=== PATIENT | female | born 1955 | race Caucasian/White ===

== ENCOUNTER 2025-05-02 04:38 | Inpatient (IN) | payer OTHER, SELFPAY ==
[2025-05-01 18:23] VITALS: BP 101/70
[2025-05-01 18:35] LABS: Hematocrit 25.5 % (37.0-47.0); Hemoglobin 8.7 g/dL (12.0-16.0); Mean Corp Hgb Conc. 34.1 g/dL (33.0-37.0); Mean Corpuscular Volume 93.4 fL (81.0-99.0); Nucleated Red Blood Cells % 0 %; Platelet Count 229 10^3/uL (130-400); Red Cell Dist. Width 13.7 % (11.5-14.5)
[2025-05-01 18:46] LABS: ALT (SGPT) 11 U/L (0-35); AST (SGOT) 19 U/L (14-36); Albumin 3.7 g/dl (3.5-5.0); Alkaline Phosphatase 73 U/L (38-126); Blood Urea Nitrogen 18 mg/dl (7-17); Calcium 9.2 mg/dl (8.4-10.2); Carbon Dioxide 31 mmol/L (22-30); Chloride 101 mmol/L (98-107); Glucose 125 mg/dl (70-99); Potassium 2.8 mmol/L (3.5-5.1); Sodium 138 mmol/L (135-145); Total Protein 6.4 g/dl (6.3-8.2); eGFR > 60.00
[2025-05-01 23:08] VITALS: BP 125/77
--- NOTE | 2025-05-01 23:21 | ED.GENMED ---
History of Present Illness
<Daylin Ferrell PA-C - Last Filed: 05/02/25 07:34>
General
Chief Complaint: Rectal Bleeding
Source: patient
Exam Limitations: none
Time Seen by Provider: 05/01/25 23:20
Nursing documentation reviewed up to this point in time: agreed with
History of Present Illness
History of Present Illness:
69-year-old female with a past medical history of iron deficiency anemia, coronary artery disease, Crohn's disease, hypertension, hyperlipidemia, presents to the ER today with concerns of rectal bleeding and abdominal pain. She reports that she
recently moved from [place] in November and has been without a GI doctor. She is supposed to receive Entyvio infusions to treat her Crohn's every 8 weeks, however because of the manage she has been without her infusions since last October. The patient
states that she normally has multiple bowel movements every day but reports that recently the past few days she started to have diarrhea associated with bleeding. She notes maroon-colored stools. Also has left-sided abdominal pain. She is feeling
very weak and dizzy at times. She was previously diagnosed with anemia and takes iron however she is unsure of her baseline hemoglobin. She also notes some intermittent pain around her head as she did fall off a few days ago as a result of
dizziness and lightheadedness. She did hit her head. She not lose consciousness. She does not have any neck pain. She denies any facial pain or dental pain.
Review of Systems
<Daylin Ferrell PA-C - Last Filed: 05/02/25 07:34>
Review of Systems
All Other Systems: ROS reviewed and negative except as documented in HPI and ROS
Phy Exam
<Daylin Ferrell PA-C - Last Filed: 05/02/25 07:34>
Physical Exam
Physical Exam:
General: Patient is well appearing and in no acute distress; non-toxic
Skin: Warm and dry, no rashes or lesions
Head: No palpable hematoma of the scalp. Right sided periorbital ecchymosis. No tenderness of the facial bones.
Eyes: Sclera non-icteric. EOMs intact. No entrapment. No proptosis.
Cardiac: Regular rate and rhythm, no murmurs
Peripheral Vascular: No lower extremity swelling or edema
Pulm: Normal respiratory effort, no wheezes, rales, rhonchi
Abdomen: Abdomen is soft, minimal left-sided tenderness no palpable masses
Genitourinary: External hemorrhoid that is not actively bleeding, nonpainful. Heme positive stool noted within the rectal vault. No carmen rectal bleeding.
Neuro: CN II-XII intact, no focal neurologic deficits.
Psychiatric: Appropriate mood and affect.
Course
<Daylin Ferrell PA-C - Last Filed: 05/02/25 07:34>
Orders/Labs/Results
Orders:
Orders
05/01/25 18:24
Complete Blood Count/With Diff Urgent
Comprehensive Metabolic Panel Urgent
05/01/25 20:38
Type+Screen Urgent
05/01/25 23:06
PT/INR [Prothrombin Time] Urgent
Is patient on Coumadin/Warfarin?: No
Comment: [email or web address]
PTT Urgent
05/01/25 23:20
Lipase Urgent
Magnesium Urgent
05/01/25 23:35
Lactic Acid Urgent
Urinalysis Reflex To Culture Urgent
Date Specimen was Collected: 05/02/25
Time Specimen was Collected: 01:24
0.9% Sodium Chloride 500 ml [Nss] 500 ml IV BOLUS
Iohexol [Omnipaque] See Protocol PO NOW STA
05/01/25 23:44
Piperacillin/Tazo 4.5 Gram [Zosyn] 4.5 gram in 100 ml IV NOW
Potassium Chloride 10% Elixir [KCl Elixir] 40 meq PO NOW STA
05/02/25
CT Abd/pel W Iv And Oral Contr Urgent
Reason For Exam: Left sided abdominal pain, rectal bleeding
CT Head W/o Iv Contrast Urgent
Reason For Exam: fall, head trauma
05/02/25 01:25
Urine Microscopic Reflex Cult Urgent
Urine Culture Urgent
[facility] Source: U
Specimen Description:
Date Specimen was Collected: 05/02/25
Time Specimen was Collected: :24
05/02/25 04:31
Admit/Transfer Patient As Directed
Co-Sign Provider:
Level of Care: Inpatient admission
Assign to:: Telemetry
Physician / Group: Marvin
Diagnosis: LGIB, Crohn's
Reason for Telemetry: Arrhythmia
Date to Stop Telemetry: 05/05/25
Time to Stop Telemetry: 11:00
Reason for Hospitalization: LGIB, Crohn's
Expected length of stay greater than two midnights?: Yes
ELOS- Estimated Length of Stay in days: 3
I certify the patient meets the requirements for IP care: Yes
Code Status As Directed
Resuscitation Status: Full Code
PRN Pain Medication Management As Directed
May give lesser potent ordered pain med per pt: Yes
preference::
Protocol:: Medication orders for pain may be administered in a
manner that supports deferring to patient preference
when the pt is:
- Requesting an ordered lesser potent pain medication.
Least to most potent pain medications are defined
as: acetaminophen < NSAID < tramadol < opioids
(morphine, oxycodone, hydromorphone).
- Requesting a lesser dose of the same medication IF
ORDERED.
- Requesting a less intrusive route of administration
if both routes are prescribed by the provider (PO <
IV).
05/02/25 05:29
Acetaminophen [Tylenol] 650 mg PO Q4HPRN PRN
KCl 40 Meq/0.9%Sodchl 1000 ml [NSS with KCL 40 MEQ] 40 meq in 1,000 ml IV 125 mls/hr
05/02/25 05:29
Consult Notification Routine
Specialty to Notify: Gastroenterology
GASTROINTESTINAL CONSULT Routine
Consulting Provider: Mily Nunez
Was physician already notified: No
Reason for consult: LGIB, Crohn's
Activity As Directed
Activity Level: Bedrest
I/O [Intake/ Output] As Directed
Frequency: Per unit guidelines
Pneumatic Compression Sleeves As Directed
Type: Knee high
Vital Signs As Directed
Frequency: Per unit guidelines
Oxygen Therapy [O2 Therapy] [RESP] Routine
Titrate/Wean O2 to maintain O2 sat greater than (%): 94
DX Deep Vein Thrombosis Video Routine
05/02/25 Breakfast
NPO
Allow oral meds: Yes
Allow clear liquids: Sips of Clears
Levothyroxine [Synthroid] 25 mcg PO DAILY @ 0600
05/02/25 06:34
Basic Metabolic Panel IN AM
Complete Blood Count/No Diff IN AM
HH [H&H] Q6H
05/02/25 08:00
Carvedilol [Coreg] 6.25 mg PO BID
Pantoprazole [Protonix IV] 40 mg IV BID
05/02/25 11:29
HH [H&H] Q6H
05/02/25 17:29
HH [H&H] Q6H
05/02/25 23:29
HH [H&H] Q6H
05/05/25 11:00
DC Protocol for Telemetry ONCE
Abnormal Lab Results
05/01/25 05/02/25 05/02/25
18: 00:34 01:25
WBC 17.0 H 10^3/uL
(4.8-10.8)
RBC 2.73 L 10^6/uL
(4.20-5.40)
Hgb 8.7 L g/dL
(12.0-16.0)
Hct 25.5 L %
(37.0-47.0)
MCH 31.9 H pg
(27.0-31.0)
Abs Immat Gran (auto) 0.1 H 10^3/uL
(0-0.05)
Absolute Neuts (auto) 11.8 H 10^3/uL
(1.4-6.5)
Absolute Lymphs (auto) 4.1 H 10^3/uL
(1.2-3.4)
Absolute Monos (auto) 0.8 H 10^3/uL
(0.1-0.6)
APTT 23.3 L Sec
(23.4-35.0)
Potassium 2.8 L mmol/L
(3.5-5.1)
Carbon Dioxide 31 H mmol/L
(22-30)
BUN 18 H mg/dl
(7-17)
Glucose 125 H mg/dl
(70-99)
Ur Occult Blood Reflex 3+ A
(Negative)
Leukocyte Esterase Rfl 2+ A
(Negative)
Urine Albumin (Reflex) 1+ A
(Neg - Trace)
05/01/25 18:24
05/01/25 18:24
Vital Signs
Initial and Last Documented VS:
Initial Vital Signs
Temp Pulse Resp BP Pulse Ox
98.2 F 84 16 101/70 96
05/01/25 18:23 05/01/25 18:23 05/01/25 18:23 05/01/25 18:23 05/01/25 18:23
Last Documented Vital Signs
Temp Pulse Resp BP Pulse Ox
98.2 F 86 12 130/68 98
05/01/25 18:23 05/02/25 06:45 05/02/25 06:45 05/02/25 06:31 05/02/25 06:45
<Rony Dumont MD - Last Filed: 05/01/25 23:52>
Orders/Labs/Results
Orders:
Orders
05/01/25 18:24
Complete Blood Count/With Diff Urgent
Comprehensive Metabolic Panel Urgent
05/01/25 20:38
Type+Screen Urgent
05/01/25 23:06
PT/INR [Prothrombin Time] Urgent
Is patient on Coumadin/Warfarin?: No
Comment: [email or web address]
PTT Urgent
05/01/25 23:20
Lipase Urgent
Magnesium Urgent
05/01/25 23:35
Lactic Acid Urgent
Urinalysis Reflex To Culture Urgent
Date Specimen was Collected: 05/02/25
Time Specimen was Collected: :24
0.9% Sodium Chloride 500 ml [Nss] 500 ml IV BOLUS
Iohexol [Omnipaque] See Protocol PO NOW STA
05/01/25 23:44
Piperacillin/Tazo 4.5 Gram [Zosyn] 4.5 gram in 100 ml IV NOW
Potassium Chloride 10% Elixir [KCl Elixir] 40 meq PO NOW STA
05/02/25
CT Abd/pel W Iv And Oral Contr Urgent
Reason For Exam: Left sided abdominal pain, rectal bleeding
CT Head W/o Iv Contrast Urgent
Reason For Exam: fall, head trauma
05/02/25 01:25
Urine Microscopic Reflex Cult Urgent
Urine Culture Urgent
[facility] Source: U
Specimen Description:
Date Specimen was Collected: 05/02/25
Time Specimen was Collected: 01:24
05/02/25 04:31
Admit/Transfer Patient As Directed
Co-Sign Provider:
Level of Care: Inpatient admission
Assign to:: Telemetry
Physician / Group: Marvin
Diagnosis: LGIB, Crohn's
Reason for Telemetry: Arrhythmia
Date to Stop Telemetry: 05/05/25
Time to Stop Telemetry: 11:00
Reason for Hospitalization: LGIB, Crohn's
Expected length of stay greater than two midnights?: Yes
ELOS- Estimated Length of Stay in days: 3
I certify the patient meets the requirements for IP care: Yes
Code Status As Directed
Resuscitation Status: Full Code
PRN Pain Medication Management As Directed
May give lesser potent ordered pain med per pt: Yes
preference::
Protocol:: Medication orders for pain may be administered in a
manner that supports deferring to patient preference
when the pt is:
- Requesting an ordered lesser potent pain medication.
Least to most potent pain medications are defined
as: acetaminophen < NSAID < tramadol < opioids
(morphine, oxycodone, hydromorphone).
- Requesting a lesser dose of the same medication IF
ORDERED.
- Requesting a less intrusive route of administration
if both routes are prescribed by the provider (PO <
IV).
05/02/25 05:29
Acetaminophen [Tylenol] 650 mg PO Q4HPRN PRN
KCl 40 Meq/0.9%Sodchl 1000 ml [NSS with KCL 40 MEQ] 40 meq in 1,000 ml IV 125 mls/hr
05/02/25 05:29
Consult Notification Routine
Specialty to Notify: Gastroenterology
GASTROINTESTINAL CONSULT Routine
Consulting Provider: Mily Nunez
Was physician already notified: No
Reason for consult: LGIB, Crohn's
Activity As Directed
Activity Level: Bedrest
I/O [Intake/ Output] As Directed
Frequency: Per unit guidelines
Pneumatic Compression Sleeves As Directed
Type: Knee high
Vital Signs As Directed
Frequency: Per unit guidelines
Oxygen Therapy [O2 Therapy] [RESP] Routine
Titrate/Wean O2 to maintain O2 sat greater than (%): 94
DX Deep Vein Thrombosis Video Routine
05/02/25 Breakfast
NPO
Allow oral meds: Yes
Allow clear liquids: Sips of Clears
Levothyroxine [Synthroid] 25 mcg PO DAILY @ 0600
05/02/25 06:34
Basic Metabolic Panel IN AM
Complete Blood Count/No Diff IN AM
HH [H&H] Q6H
05/02/25 08:00
Carvedilol [Coreg] 6.25 mg PO BID
Pantoprazole [Protonix IV] 40 mg IV BID
05/02/25 11:29
HH [H&H] Q6H
05/02/25 17:29
HH [H&H] Q6H
05/02/25 23:29
HH [H&H] Q6H
05/05/25 11:00
DC Protocol for Telemetry ONCE
Abnormal Lab Results
05/01/25 05/02/25 05/02/25
18:24 00:34 01:25
WBC 17.0 H 10^3/uL
(4.8-10.8)
RBC 2.73 L 10^6/uL
(4.20-5.40)
Hgb 8.7 L g/dL
(12.0-16.0)
Hct 25.5 L %
(37.0-47.0)
MCH 31.9 H pg
(27.0-31.0)
Abs Immat Gran (auto) 0.1 H 10^3/uL
(0-0.05)
Absolute Neuts (auto) 11.8 H 10^3/uL
(1.4-6.5)
Absolute Lymphs (auto) 4.1 H 10^3/uL
(1.2-3.4)
Absolute Monos (auto) 0.8 H 10^3/uL
(0.1-0.6)
APTT 23.3 L Sec
(23.4-35.0)
Potassium 2.8 L mmol/L
(3.5-5.1)
Carbon Dioxide 31 H mmol/L
(22-30)
BUN 18 H mg/dl
(7-17)
Glucose 125 H mg/dl
(70-99)
Ur Occult Blood Reflex 3+ A
(Negative)
Leukocyte Esterase Rfl 2+ A
(Negative)
Urine Albumin (Reflex) 1+ A
(Neg - Trace)
05/01/25 18:24
05/01/25 18:24
Vital Signs
Initial and Last Documented VS:
Initial Vital Signs
Temp Pulse Resp BP Pulse Ox
98.2 F 84 16 101/70 96
05/01/25 18:23 05/01/25 18:23 05/01/25 18:23 05/01/25 18:23 05/01/25 18:23
Last Documented Vital Signs
Temp Pulse Resp BP Pulse Ox
98.2 F 86 12 130/68 98
05/01/25 18:23 05/02/25 06:45 05/02/25 06:45 05/02/25 06:31 05/02/25 06:45
Shaggylt;Daylin Ferrell PA-C - Last Filed: 05/02/25 07:34>
MDM/Problems Addressed
Differential Diagnosis Includes:
Differentials include Crohn's flare, intra-abdominal abscess, gastroenteritis, lower GI bleeding, upper GI bleeding, diverticular bleed
MDM/Problems Addressed:
69-year-old female with a past medical history of iron deficiency anemia, coronary artery disease, Crohn's disease, hypertension, hyperlipidemia, presents to the ER today with concerns of rectal bleeding and abdominal pain. She reports that she
recently moved from [place] in November and has been without a GI doctor. She is supposed to receive Entyvio infusions to treat her Crohn's every 8 weeks, however because of the manage she has been without her infusions since last October.
She has been having persistent bloody stools daily multiple times a day for the past 5 days. She also notes dizziness. She has baseline anemia unclear of her baseline hemoglobin is on physical exam she is nontoxic-appearing has a soft abdomen with
minimal tenderness. She does have heme positive stool. Will plan to admit for observation and trending hemoglobins. Will send for CT scan with IV and oral contrast as well as CAT scan of the head. Labs reviewed, hemoglobin noted to be 8.7 no
baseline labs for comparison. Leukocytosis noted at 17. Will initiate Zosyn. Potassium 2.8, will replete potassium. Urinalysis pending. Patient consented for blood.
Chronic conditions affecting care:
htn, GERD, hlp, crohns
<Daylin Ferrell PA-C - Last Filed: 05/02/25 07:34>
*Pulse Oximetry
SaO2: 96
Oxygen Mode of Delivery: Room air
Patient hypoxic: no
*Critical Care Note
Total Time (30-74mins, 75-104mins- exclusive of procedures): Not Applicable
ED Attending Note
<Daylin Ferrell PA-C - Last Filed: 05/02/25 07:34>
-
Portions of this chart may have been created with voice recognition software.� Occasional wrong word or��sound alike� substitutions may have occurred due to the inherent limitations of voice recognition software.
<Rony Dumont MD - Last Filed: 05/01/25 23:52>
ED Attending Note
Patient seen and examined by attending physician: Yes
I performed the substantive portion of visit, reviewed & personally made and approve the management plan that is documented in note by myself or RAOUL.: Yes
ED Attending Note:
69-year-old female history of Crohn's disease. Has not had her Entyvio since October. Complaining of mostly bright red but slightly maroon at times rectal bleeding x 4 days. Some clots. Generally weak. On Brilinta and aspirin.
On exam patient is nontoxic. Stable vital signs. Area of ecchymosis around the right periorbital area. Abdomen is relatively soft. No significant tenderness. No rebound or guarding no mass or hernia. She is warm and dry. She is perfusing well.
No previous labs. Patient states her hemoglobin has gone down to 7 or 8 in the past. Leukocytosis, anemia. Hypokalemia.
Will replete the potassium, CT scan to rule out intra-abdominal abscess or surgical findings, antibiotics. Admission for further care
Discharge Plan
Departure
Patient Disposition: Admit
Date of Disposition: 05/02/25
Time of Disposition: 03:23
Admit to: Med/Surg and Telemetry
Presentation/result/management discussed w/ accepting MD/DO: Hospitalist
Patient with high blood pressure during this ER visit?: No
Condition: Fair
Discharge Problem:
GI bleeding, Crohn's disease
Interventions
Interventions:
*Risk Screen - Suicide Last Done: 05/01/25 18:23
*General Assessment Last Done: 05/02/25 03:30
*Neglect/Abuse Screening Last Done: 05/01/25 18:23
*ED- Fall Risk Assessment Last Done: 05/02/25 03:30
*ED COVID-19 Vaccine History Last Done: 05/02/25 03:30
WX-Ubztod-Xcmzqewtcq Assessment Last Done: 05/02/25 02:44
ED- Cardiac Assessment Last Done: 05/02/25 02:44
ED- Pulmonary Assessment Last Done: 05/02/25 02:44
[2025-05-01 23:46] VITALS: BMI 25.0
[2025-05-02] VITALS (8 sets, daily range): BP systolic 92–140; BP diastolic 61–74; BMI 24.8
[2025-05-02] MEDS: OMNIPAQUE 50 ML PO (00:15)
[2025-05-02] MEDS: KCL ELIXIR 40 MEQ PO (00:17)
[2025-05-02] MEDS: NSS 500 IV (00:33)
[2025-05-02] MEDS: ZOSYN 100 IV (00:33)
[2025-05-02 01:05] LABS: Lipase 273 U/L (23-300); Magnesium 1.7 mg/dl (1.6-2.3)
[2025-05-02 01:17] LABS: APTT 23.3 Sec (23.4-35.0); INR 1.02; PT 13.7 Sec (11.4-14.6)
[2025-05-02 01:53] LABS: Urine Character Clear (Clear)
[2025-05-02 02:13] LABS: Urine Squamous Cell 0-2 /LPF (Few)
[2025-05-02 02:14] LABS: Urine Red Blood Cell 0-2 /HPF (0-2); Urine White Cell 0-2 /HPF (0-5)
--- NOTE | 2025-05-02 04:33 | HPS.HSE ---
Family Physician
-
Family Physician: Anjelica Lara
Chief Complaint
-
BRBPR
History of Present Illness
Patient is a 69y F with PMH significant for Crohn's disease, ASCVD and CLL who presents to ED complaining of fatigue, diarrhea and BRBPR. Patient reports history of Crohn's disease for the past 15 years. She was maintained on Entyvio until she
relocated to [place] from [place] in October. Patient reports frequent diarrhea - even when on Entyvio. She reports about 3-4 loose bowel movements per day. Her frequency of stools has not changed; however, patient has noted BRB in the stool since
Wednesday. She reports some mild, crampy, diffuse abdominal pain. She has had grossly bloody stools throughout the weekend.
Patient complains of feeling significantly weak / fatigued.
She had a fall on Wednesday as well. She cannot recall the details of this fall well and it seems clear that she had syncope.
She has a contusion on the R protestant and ecchymosis around the R eye.
With ongoing BRBPR and worsening fatigue, patient presented to the ED for further evaluation.
She denies any fevers / chills, N/V, chest pain or dyspnea.
Medical History
Past Medical History
Past Medical History: Reports Other
Additional Past Medical History:
Crohn's Disease
ASCVD
Hypertension
CLL
Hypothyroidism
Anxiety / Depression
Past Surgical History: Reports Other
Additional Past Surgical History:
Mitral Valve Repair / CABG x 1
PTCA with Stent x 2
Cervical Fusion
Social History
Tobacco: Smoker (Current every day smoker. / ppd.)
Alcohol: Occasional (Rare)
Drug: None
Family History
Family History: Not pertinent
Allergies / Home Medications
Allergies reflects when Allergies were last updated in [employer].
Home Medications with original date entered in [employer]
Allergy/Medication List:
Allergies
Allergy/AdvReac Type Severity Reaction Status Date / Time
azathioprine (From Imuran) Allergy Unknown Verified 05/02/25 03:33
Home Medications
Brilinta 90 mg PO BID 05/02/25
carvedilol 6.25 mg PO BID 05/02/25
esomeprazole magnesium 40 mg PO DAILY 05/02/25
ferrous sulfate 325 mg PO DAILY 05/02/25
ipratropium bromide 05/02/25
levothyroxine 25 mcg PO DAILY 05/02/25
ramipril 10 mg PO DAILY 05/02/25
rosuvastatin 10 mg PO DAILY 05/02/25
venlafaxine 75 mg PO DAILY 05/02/25
Review of Systems
-
History Source: Patient
A 12 point ROS was completed and negative except as noted: Yes
Constitutional: Reports Fatigue; Denies Fever or Chills
EENT: Denies Sore Throat
Respiratory: Denies Cough or Trouble Breathing
Cardiac: Denies Chest Pain or Palpitations
Abdomen/GI: Reports Abdominal Pain, Diarrhea and Bloody Stools; Denies Nausea or Vomiting
: Denies Dysuria, Frequency or Flank Pain
Musculoskeletal: Denies Joint Pain or Edema
Neurological: Reports Dizzy; Denies Headache, Weakness or Numbness
Psych: Denies Depression or Anxiety
Physical Exam
Vital Signs
Vital Signs
Temp Pulse Resp BP Pulse Ox
98.2 F 102 18 92/61 88
05/01/25 18:23 05/02/25 02:00 05/02/25 04:00 05/02/25 02:00 05/02/25 02:00
Physical Exam
General: Other (69y F in no acute distress.)
HEENT: Moist mucous membranes, PERRLA and Other (Ecchymosis around R orbit and over R protestant. No active bleeding. Orb without evident injury.)
Respiratory: Clear; No Wheezes, Rales or Rhonchi
Cardiac: S1/S2 and Regular Rhythm; No Murmur
GI: Soft, Non Tender, Non Distended and Normal Bowel Sounds
Musculoskeletal: No Clubbing, No Cyanosis and No Edema
Neuro: AO x 3
Laboratory Results
-
05/01/25 18:24
05/01/25 18:24
Laboratory Results
PT 13.7 Sec (11.4-14.6) 05/02/25 00:34
INR 1.02 05/02/25 00:34
APTT 23.3 Sec (23.4-35.0) L 05/02/25 00:34
Lactic Acid 1.5 mmol/L (0.7-2.0) 05/02/25 00:34
Total Bilirubin 0.4 mg/dl (0.2-1.3) 05/01/25 18:24
AST 19 U/L (14-36) 05/01/25 18:24
ALT 11 U/L (0-35) 05/01/25 18:24
Alkaline Phosphatase 73 U/L (38-126) 05/01/25 18:24
Lipase 273 U/L (23-300) 05/02/25 00:34
Impression/Plan
-
A/P: Patient is a 69y F with PMH significant for Crohn's disease, ASCVD and CLL who presents to ED complaining of BRBPR and weakness.
Lower GI Bleed
Acute Blood Loss Anemia secondary to the above
- Admit for further evaluation and treatment.
- ? Crohn's flare - but no change in frequency of stools and CT A/P done in the ED was essentially unremarkable.
- Follow H&H and transfuse if Hgb < 7.
- Hold Brilinta acutely.
- Continue PPI.
- Reviewed prior labs on patient's phone / portal - Hgb in August was 12.1 g/dL.
- GI evaluation for additional recommendations / possible colonoscopy.
Crohn's Disease
- Off of Entyvio since October. No change in frequency of stools. New BRBPR as noted above.
- Hold on further abx for now.
- GI evaluation as noted above.
Hypokalemia
- Likely secondary to diarrhea / GI losses.
- IVFs + KCl.
- Follow for improvement and adjust replacement as needed.
CLL
- WBC was 10 in August. Currently 17.
- Afebrile and non-toxic appearing. CT scan without evidence of bowel wall thickening / inflammation / etc.
- Observe off of abx as noted above.
- Follow CBC for cell count changes.
ASCVD
- Stable. No chest pain or dyspnea.
- Holding Brilinta acutely as noted above.
- Continue carvedilol with holding parameters.
Syncope
Fall at Home
- Patient with fall on Wednesday and evident head injury / apparent syncope.
- Monitor on telemetry overnight for any arrhythmia.
- Likely secondary to blood loss / anemia.
- IVFs / blood product support.
- Follow for any new / recurrent symptoms.
- CT head done in the ED today with no acute findings. Hypodense area in R frontal lobe - follow-up formal report.
Hypothyroidism
- Continue T4 supplementation.
DVT Prophylaxis: SCDs
Code Status: Full
[2025-05-02] MEDS: SYNTHROID 25 MCG PO (06:37)
[2025-05-02] MEDS: NSS with KCL 40 MEQ 1000 IV ×3 (06:39→23:34)
--- NOTE | 2025-05-02 06:51 | CON.GI ---
Addendum entered and electronically signed by Mily García Do, MD 05/02/25 17:49:
I saw and examined the patient.
The ICE PLANT OPERATOR's note was reviewed and I agree with the note.
Comment: Sara is a 69yo W moved here from [place] with h/o longstanding crohn's of ileal involvement previously on entyvio however due to recent move has been off therapy. She did re-establish at [facility] with home entyvio infusions to start next
week. However she is now presenting for worsening bloody diarrhea. Vitals stable exam R eye bruised NTTP, NABS. Labs Hbg 7.4
Impression
- Acute bloody diarrhea
Suspect crohn's flare in setting of being off entyvio due to move
- H/o crohn's of small bowel
- CAD
- Severe MR
- HTN
- Hyperlipidemia
- Hypothyroidism
- CLL
- GERD
Recommendations
- Stool studies now
- Start IV steroids
- Fecal calprotectin pending
- Adv to low residue diet
- Vit B12 injection x1
- She follows with [facility] and has entyvio infusion set up for next week with them
Will follow with you
Addendum entered and electronically signed by DAYANNA Arita 05/02/25 17:24:
reviewed with pt for steroids, feeling better will allow low residue dinner
Addendum entered and electronically signed by DAYANNA Arita 05/02/25 13:50:
c-diff neg will add IV steroids reviewed with Dr. Nunez
Addendum entered and electronically signed by DAYANNA Arita 05/02/25 10:19:
CRP/ESR and fecal bladimir also added
Original Note:
Consultation
-
Date/Time Consultation Requested: 05/02/25 7430
Date/Time Consultation Performed: 05/02/25 2115
Requesting Provider: Redd Wong DO
Performing Provider: DAYANNA Sandra, Mily Nunez MD
Reason for Consultation: rectal bleeding
Medical History
Chief Complaint / HPI
Chief Complaint: rectal bleeding
History of Present Illness:
Pt is a 69yo with hx ASCVD, prior PA, prior CABG x1, PTCA with stent x 2(on Brilinta) MVR, TR, pulm HTN, hypercholesterolemia, continued tobacco abuse, GERD on Nexium, hiatal hernia, prior cervical fusion, CLL, HTN, hypothyroidism,
anxiety/depression, autoimmune hepatitis with prior liver biopsy, iron deficiency with prior iron infusions and chronic oral iron, colon polyps, and longstanding crohn's disease with noted IC valve stenosis x 15 years. Pt was living in [place]
and was receiving Entyvio infusions and now moved with [place] with recent follow up with [facility]. She was set up to restart Entyvio through home infusion this week but now presents with bloody stools since last wednesday. On admission noted with WBC
17,000, hbg 8.7, platelets 229, K 2.8, bun 18, creat 0.8, glucose 125 with normal LFT's and lipase. CT with final report pending preliminary with no acute abnormalities, no obstruction, s/p ezequiel, normal appendix, difficulty to assess for bleeding
with enteric contrast, mil gastric distention, hepatic hypodensity too small to characterize, no abdominal aneurysm, vertebral height loss.
In review with patient she admits to diagnosis around 2009. She recall prior Asacol therapy and Remicade but has been on Entyivo for 10 years. She admits to steroid use about 1 time per year and no prior surgical resection. Sister with
Ulcerative colitis. No concurrent rashes, joint pains or visual problems. She admits last Entyvio was in October and due to restart this week. She had chronic diarrhea with 5 stools daily. She began with bright red blood per rectum since Wednesday
with some dark clots. Since admission blood had stopped. She also admits to hx Dysphagia, GERD, recent nausea, vomiting, few lbs wt loss, chronic mild intermittent abdominal pain, and denies black stools. Pt also admits to recent fall with eye
bruising.
prior [place] records:
- approx 08/2024- c-diff neg, fecal bladimir 389 elevated inflammatory marker
-09/05/24- EGD Dr. Dillon irreg Z line, small HH gastritis, duodenal erosions without bleeding, bx neg celiac, dowell's, EOE, no metaplasia, chronic active gastritis no metaplasia
-09/05/24 Dr. Dillon colonoscopy hemorrhoids, chronic appearing stenosis at Ileocecal valve not traversed due to excess stenosis and intractable looping in colon) mild eroded mucous in cecum, 1 mm polyp in cecum, 1 mm normal mucosa in TC, hepatic
flexure, and AC, multiple bx taken, normal mucosa in sigmoid, mild congested mucosa in rectum, diverticulosis, non bleeding hemorrhoids, no dysplasia cecal bx, colon bx no significant alteration, no granulomatous inflammation dysplasia or
microscopic colitis neg CMV, cecal polyp serrated lesion recall 3 years
05/18/24- hbg 12.1, MCV 88.9, platelets 239, ASt 17, ALT 23, alk phos 133 iron 42, TIBC 400, ferritin 19
on last visit in October with GI MD CT recommended last visit may need CTE vs MRE avoid capsule with IC valve stenosis
Past Medical History
Past Medical History: Cancer (CLL), GERD, HTN, Hypercholesterolemia, Hypothyroidism, PA, Valvular Disease (MVR, TR), Psychiatric (anxiety/depression) and Other (ASCVD, pulm HTN, tobacco abuse , autoimmune hepatitis with prior liver biopsy, VICENTE )
Past Surgical History: Cardiac (MVR, CABG x 1, PTCA with stent x 2), Cholecystectomy, Orthopedic (cervical fusion) and Other (liver biopsy )
Social History
Tobacco: Smoker
Alcohol: Occasional (in past )
Drug: Marijuana (rare )
Personal: (but from [place] in [place])
Living: With Family (son and his family )
Employment: Retired
Family History
Family History: Other (sister with UC)
Allergies / Home Medications
Allergy/AdvReac Type Severity Reaction Status Date / Time
azathioprine (From Imuran) Allergy Unknown Verified 05/02/25 03:33
�Medication �Instructions �Recorded
Brilinta 90 mg PO BID 05/02/25
carvedilol 6.25 mg PO BID 05/02/25
esomeprazole magnesium 40 mg PO DAILY 05/02/25
ferrous sulfate 325 mg PO DAILY 05/02/25
ipratropium bromide 05/02/25
levothyroxine 25 mcg PO DAILY 05/02/25
ramipril 10 mg PO DAILY 05/02/25
rosuvastatin 10 mg PO DAILY 05/02/25
venlafaxine 75 mg PO DAILY 05/02/25
Review of Systems
-
History Source: Patient
Constitutional: Reports Weight Gain and Other (sweat )
EENT: Reports No Symptoms
Respiratory: Reports Trouble Breathing (chronic )
Cardiac: Reports No Symptoms
Abdomen/GI: Reports Abdominal Pain, Nausea, Vomiting, Diarrhea and Bloody Stools
: Reports No Symptoms
Musculoskeletal: Reports No Symptoms
Skin: Reports No Symptoms
Neurological: Reports Weakness
Endocrine: Reports No Symptoms
Hematologic/Lymphatic: Reports Bleeding
Vital Signs
Temp Pulse Resp BP Pulse Ox
98.2 F 86 12 130/68 98
05/01/25 18:23 05/02/25 06:45 05/02/25 06:45 05/02/25 06:31 05/02/25 06:45
Physical Exam
Exam
General: Well Developed, Well Nourished, No Apparent Distress and Other
HEENT: Normocephalic, Anicteric and Other (right eye eccymosis )
Respiratory: Clear
Cardiac: Regular Rhythm
GI: Soft, Non Distended and Tender (minimal diffuse)
Musculoskeletal: No Clubbing and No Cyanosis
Skin: Warm and Dry
Neuro: Awake, Alert and AO x 3
Psych: Calm
Results
WBC 17.0 10^3/uL (4.8-10.8) H 05/01/25 18:24
Hgb 8.7 g/dL (12.0-16.0) L 05/01/25 18:24
Hct 25.5 % (37.0-47.0) L 05/01/25 18:24
MCV 93.4 fL (81.0-99.0) 05/01/25 18:
Plt Count 229 10^3/uL (130-400) 05/01/25 18:24
Absolute Neuts (auto) 11.8 10^3/uL (1.4-6.5) H 05/01/25 18:
PT 13.7 Sec (11.4-14.6) 05/02/25 00:34
INR 1.02 05/02/25 00:34
APTT 23.3 Sec (23.4-35.0) L 05/02/25 00:34
Sodium 138 mmol/L (135-145) 05/01/25 18:24
Potassium 2.8 mmol/L (3.5-5.1) L 05/01/25 18:24
Chloride 101 mmol/L (98-107) 05/01/25 18:24
Carbon Dioxide 31 mmol/L (22-30) H 05/01/25 18:24
BUN 18 mg/dl (7-17) H 05/01/25 18:
Creatinine 0.8 mg/dL (0.6-1.0) 05/01/25 18:24
Calcium 9.2 mg/dl (8.4-10.2) 05/01/25 18:24
Total Bilirubin 0.4 mg/dl (0.2-1.3) 05/01/25 18:
AST 19 U/L (14-36) 05/01/25 18:24
ALT 11 U/L (0-35) 05/01/25 18:24
Alkaline Phosphatase 73 U/L (38-126) 05/01/25 18:
Lipase 273 U/L (23-300) 05/02/25 00:34
Diagnostic Image Results:
CT a/p with final report pending preliminary with no acute abnormalities, no obstruction, s/p ezequiel, normal appendix, difficulty to assess for bleeding with enteric contrast, mil gastric distention, hepatic hypodensity too small to characterize, no
abdominal aneurysm, vertebral height loss.
Prior GI Procedures:
-09/05/24- EGD Dr. Dillon irreg Z line, small HH gastritis, duodenal erosions without bleeding, bx neg celiac, dowell's, EOE, no metaplasia, chronic active gastritis no metaplasia
-09/05/24 Dr. Dillon colonoscopy hemorrhoids, chronic appearing stenosis at Ileocecal valve not traversed due to excess stenosis and intractable looping in colon) mild eroded mucous in cecum, 1 mm polyp in cecum, 1 mm normal mucosa in TC, hepatic
flexure, and AC, multiple bx taken, normal mucosa in sigmoid, mild congested mucosa in rectum, diverticulosis, non bleeding hemorrhoids, no dysplasia cecal bx, colon bx no significant alteration, no granulomatous inflammation dysplasia or
microscopic colitis neg CMV, cecal polyp serrated lesion recall 3 years
Assessment / Plan
-
Pt is a 69yo with hx ASCVD, prior PA, prior CABG x1, PTCA with stent x 2(on Brilinta) MVR, TR, pulm HTN, hypercholesterolemia, continued tobacco abuse, GERD on Nexium, hiatal hernia, prior cervical fusion, CLL, HTN, hypothyroidism,
anxiety/depression, autoimmune hepatitis with prior liver biopsy, iron deficiency with prior iron infusions and chronic oral iron, colon polyps, and longstanding crohn's disease x 15 years with IC valve stenosis with prior use of remicade and
Asacol, no prior surgeries with longstanding Entyvio til October with noted IC valve stenosis. Pt was living in [place] and was receiving Entyvio infusions and now moved with [place] with recent follow up with [facility]. She was set up to restart Entyvio
through home infusion this week but now presents with bloody stools since last wednesday.
CT with final report pending preliminary with no acute abnormalities, no obstruction, s/p ezequiel, normal appendix, difficulty to assess for bleeding with enteric contrast, mil gastric distention, hepatic hypodensity too small to characterize, no
abdominal aneurysm, vertebral height loss.
prior [facility] records:
- approx 08/2024- c-diff neg, fecal bladimir 389 elevated inflammatory marker
-09/05/24- EGD Dr. Dillon irreg Z line, small HH gastritis, duodenal erosions without bleeding, bx neg celiac, dowell's, EOE, no metaplasia, chronic active gastritis no metaplasia
-09/05/24 Dr. Dillon colonoscopy hemorrhoids, chronic appearing stenosis at Ileocecal valve not traversed due to excess stenosis and intractable looping in colon) mild eroded mucous in cecum, 1 mm polyp in cecum, 1 mm normal mucosa in TC, hepatic
flexure, and AC, multiple bx taken, normal mucosa in sigmoid, mild congested mucosa in rectum, diverticulosis, non bleeding hemorrhoids, no dysplasia cecal bx, colon bx no significant alteration, no granulomatous inflammation dysplasia or
microscopic colitis neg CMV, cecal polyp serrated lesion recall 3 years
05/18/24- hbg 12.1, MCV 88.9, platelets 239, ASt 17, ALT 23, alk phos 133 iron 42, TIBC 400, ferritin 19
on last visit in October with GI MD CT recommended last visit may need CTE vs MRE avoid capsule with IC valve stenosis
-blood stools
-hx chronic crohns with IC valve stenosis
-chronic diarrhea
-leukocytosis with hx CLL
-anemia
-GERD
-nausea/vomiting
-hypokalemia on admission
-fall with syncope prior to admission with eye ecchymosis
other med problems:
ASCVD, prior PA, prior CABG x1, PTCA with stent x 2(on Brilinta) MVR, TR, pulm HTN, hypercholesterolemia, continued tobacco abuse, GERD on Nexium, hiatal hernia, prior cervical fusion, CLL, HTN, hypothyroidism, anxiety/depression, autoimmune
hepatitis with prior liver biopsy, iron deficiency with prior iron infusions and chronic oral iron, colon polyps
Plan:
Etiology of rectal bleeding related to crohns flare (off chronic therapy since October) vs infectious etiology vs other
check stools studies
if stools neg consider steroid course
add iron studies, B12, folate
replete K per hospitalist team
cont PPI daily
await final read of CT
will review with Dr. Nunez for flex but pt on chronic Brilinta
currently brilinta hold last dose 05/01
will allow clear diet
OP follow up with [facility] in [place] -- consider eventual CTE/MRE with IC valvue disease may be leading to chronic diarrhea issues
-
-
Thank you for consultation and allowing me to participate in the patient's care. Please call the salesperson sewing machines GI physician during the after hours with any questions or concerns.
[2025-05-02 07:02] LABS: Hematocrit 22.2 % (37.0-47.0); Hemoglobin 7.6 g/dL (12.0-16.0); Mean Corp Hgb Conc. 34.2 g/dL (33.0-37.0); Mean Corpuscular Volume 96.5 fL (81.0-99.0); Platelet Count 186 10^3/uL (130-400); Red Cell Dist. Width 13.8 % (11.5-14.5)
[2025-05-02 07:17] LABS: Blood Urea Nitrogen 16 mg/dl (7-17); Calcium 8.9 mg/dl (8.4-10.2); Carbon Dioxide 28 mmol/L (22-30); Chloride 107 mmol/L (98-107); Estimated Creatinine Clearance 56 ml/min; Glucose 93 mg/dl (70-99); Potassium 3.3 mmol/L (3.5-5.1); Sodium 138 mmol/L (135-145); eGFR > 60.00
[2025-05-02] MEDS: COREG 6.25 MG PO ×2 (08:43→20:48)
[2025-05-02] MEDS: PROTONIX IV 40 MG IV ×2 (08:43→20:48)
[2025-05-02] MEDS: NSS (PRESERVATIVE FREE) 10 ML IV ×2 (08:43→20:47)
[2025-05-02 09:09] LABS: C-Reactive Protein < 5.00 mg/L (0.0-10.00)
--- NOTE | 2025-05-02 10:13 | W.PN.HOSP.TC ---
Today's Communication/Plan
-
see bold
Assessment / Plan
Assessment / Plan
HPI: 69y F with PMH significant for Crohn's disease, ASCVD and CLL who presents to ED complaining of fatigue, diarrhea and BRBPR. Patient reports history of Crohn's disease for the past 15 years. She was maintained on Entyvio until she
relocated to [place] from [place] in October. Patient reports frequent diarrhea - even when on Entyvio. She reports about 3-4 loose bowel movements per day. Her frequency of stools has not changed; however, patient has noted BRB in the stool since
Wednesday. She reports some mild, crampy, diffuse abdominal pain. She has had grossly bloody stools throughout the weekend.
Patient complains of feeling significantly weak / fatigued. She had a fall on Wednesday as well. She cannot recall the details of this fall well and it seems clear that she had syncope.
Assessment/plan:
Crohn's Disease
- ? Crohn's flare - but no change in frequency of stools and CT A/P done in the ED was essentially unremarkable.
- Off of Entyvio since October. No change in frequency of stools. New BRBPR as noted above.
- Appreciate GI input, plan for IV steroids
Lower GI Bleed
Acute Blood Loss Anemia secondary to the above
- Reviewed prior labs on patient's phone / portal - Hgb in August was 12.1 g/dL.
- Hold Brilinta, continue PPI
- Trend hemoglobin, transfuse for hemoglobin less than 7.0
Hypokalemia
- Continue to replete as needed
CLL
- WBC was 10 in August. Currently 17.
- Afebrile and non-toxic appearing. CT scan without evidence of bowel wall thickening / inflammation / etc.
- Monitor
ASCVD
- Holding Brilinta acutely as noted above.
- Continue carvedilol with holding parameters.
Syncope
Fall at Home
- Patient with fall on Wednesday and evident head injury / apparent syncope. Head CT negative
- Consult cardiology as patient has a heart history, check echocardiogram
- PT, check orthostatic VS
Hypothyroidism
- Continue T4 supplementation.
DVT Prophylaxis: SCDs
Code Status: Full
Physical Exam
General: No acute distress
HEENT: Normocephalic, left eye periorbital ecchymosis, EOMI, MMM
Respiratory: Clear to Auscultation bilaterally
Cardiac: Normal S1/S2, Regular Rate and Rhythm
GI: Soft, Nontender, Nondistended, Normal Bowel Sounds
Extremities: No Clubbing, Cyanosis, or Edema
Neuro: Nonfocal/Grossly Intact
Anticipated Discharge: > 48 hours
Subjective/Interval History
-
Date of Service: May 02, 2025
Patient reports her stools have turned brown.
Objective Data
-
Labs:
Laboratory Results
05/02/25 05/02/25 05/02/25
00:34 06:34 11:29
WBC 12.2 H
Hgb 7.6 L Pending
Hct 22.2 L Pending
Plt Count 186
PT 13.7
INR 1.02
APTT 23.3 L
Sodium 138
Potassium 3.3 L
Chloride 107
Carbon Dioxide 28
BUN 16
Creatinine 0.7
Glucose 93
Calcium 8.9
05/02/25 05/02/25
17:29 23:29
WBC
Hgb Pending Pending
Hct Pending Pending
Plt Count
PT
INR
APTT
Sodium
Potassium
Chloride
Carbon Dioxide
BUN
Creatinine
Glucose
Calcium
Vital Signs:
Vital Signs
Temp Pulse Resp BP Pulse Ox
98.3 F 88 20 111/61 100
05/02/25 07:55 05/02/25 08:43 05/02/25 07:55 05/02/25 08:43 05/02/25 09:58
[2025-05-02 10:59] LABS: Iron 60 ug/dl (37-170)
[2025-05-02 11:08] LABS: Total Iron Binding Capacity 270 ug/dl (265-497)
[2025-05-02 11:28] LABS: Hematocrit 21.9 % (37.0-47.0); Hemoglobin 7.4 g/dL (12.0-16.0)
[2025-05-02 12:14] LABS: Ferritin 42.2 ng/ml (11.1-264.0)
[2025-05-02 12:45] LABS: Folate 7.4 ng/ml (2.76-20); Vitamin B12 292 pg/ml (239-931)
[2025-05-02] MEDS: KCL 40 MEQ PO (12:49)
[2025-05-02] MEDS: SOLU-MEDROL PF 20 MG IV ×2 (14:41→22:37)
--- NOTE | 2025-05-02 15:55 | CON.CAR ---
Addendum entered and electronically signed by Quentin Vincent DO 05/02/25 16:45:
I saw and examined the patient.
The Stereo Equipment Installer's note was reviewed and I agree with the note.
Comment:
Plan:
With significant anemia and distant PCI would hold Brilinta and continue aspirin.
Low threshold for transfusion to support hemoglobin and reduce ischemic demand.
Urgent echo shows preserved LV function with adequate mitral valve repair.
Requested records.
Monitor orthostatics given fall although patient denies syncope.
Was on Coreg and ramipril as an outpatient.
Needs to establish with cardiology.
Management of Crohn's per GI
Patient was appreciative.
Original Note:
Consultation
Consultation Request
Date/Time Consultation Performed: 05/02/25
Requesting Provider: Dr. Rosalind Nunez
Performing Provider: Jesenia Mayer PA-C for Dr. Vincent
Reason for Consultation: fall vs syncope
Medical History
-
Chief Complaint: BRBPR
History of Present Illness:
Patient is a 69-year-old female who moved to live with family in the area from [place]. She has past medical history of Crohn's disease, CAD status post CABG x 1 with SVG to diagonal and mitral valve repair in 2006, RCA PCI x 2 in 2019 with most
recent cath 05/2024 with patent stents and grafts, history of ischemic cardiomyopathy with subsequent recovery to 55% by most recent echo reviewed by me 05/2023, hypertension, hyperlipidemia, hypothyroidism, CLL, GERD, iron deficiency who reports
she started on this past Wednesday with bright red blood per rectum. She then noted over the weekend that she was having weakness, dizziness, and shortness of breath with exertion. She had a fall but reports this was due to her not wearing glasses
and her missing a step and falling hitting her head. She has a ecchymoses of her right orbit. Cardiology consulted given her cardiac history and as there was some degree of concern for syncopal event rather than fall.
PMH:
CAD
status post CABG x 1 with SVG to diagonal 2006
RCA PCI x 2 in 2019
Cath 05/2024 with patent stents and grafts
Severe MR status post mitral valve repair 2006
History of ischemic cardiomyopathy with subsequent recovery to 55% by echo 05/2023
Hypertension
Hyperlipidemia
Hypothyroidism
CLL
GERD
Iron deficiency
History of seizures as a child
Ongoing tobacco use
Past Medical History
Past Medical History: Other (in HPI)
Social History
Tobacco: Smoker (1 ppd)
Living: With Family (son)
Employment: Retired
Family History
Family History: Reviewed & Not Pertinent
Allergies / Home Medications
Allergy/AdvReac Type Severity Reaction Status Date / Time
azathioprine (From Imuran) Allergy Unknown Verified 05/02/25 03:33
�Medication �Instructions �Recorded �Confirmed �Type
carvedilol 6.25 mg tablet (Coreg) 6.25 mg PO BID 05/02/25 05/02/25 History
diphenhydramine 25 2 tab PO HS 05/02/25 05/02/25 History
mg-acetaminophen 500 mg tablet
(Acetaminophen PM)
esomeprazole magnesium 40 mg 40 mg PO DAILY 05/02/25 05/02/25 History
capsule,delayed release (Nexium)
ferrous sulfate 325 mg (65 mg 325 mg PO DAILY 05/02/25 05/02/25 History
iron) tablet
ipratropium bromide 42 mcg (0.06 2 spray intranasal BIDPRN PRN 05/02/25 05/02/25 History
%) nasal spray outside activity
levothyroxine 25 mcg tablet 25 mcg PO DAILY 05/02/25 05/02/25 History
(Synthroid)
ramipril 10 mg capsule 10 mg PO DAILY 05/02/25 05/02/25 History
rosuvastatin 10 mg tablet (Crestor) 10 mg PO DAILY 05/02/25 05/02/25 History
ticagrelor 90 mg tablet (Brilinta) 90 mg PO BID 05/02/25 05/02/25 History
venlafaxine 75 mg tablet 75 mg PO DAILY 05/02/25 05/02/25 History
Review of Systems
-
History Source: Patient
All other systems: Negative unless noted
Physical Exam
Vital Signs
Temp Pulse Resp BP Pulse Ox
98.2 F 88 22 103/65 100
05/02/25 12:01 05/02/25 14:00 05/02/25 14:00 05/02/25 12:12 05/02/25 09:58
Lab Results
05/02/25 23:29
05/02/25 06:34
Physical Exam
General: No Apparent Distress, Comfortable and Other (R orbital ecchymoses)
HEENT: Normocephalic, Anicteric and Moist Mucous Membranes
Respiratory: Clear and Non Labored Respirations
Cardiac: S1/S2 and Regular Rhythm; Negative Murmur
GI: Soft, Non Tender, Non Distended and Normal Bowel Sounds
Musculoskeletal: No Clubbing, No Cyanosis and No Edema
Skin: Warm and Dry
Neuro: AO x 3
Impression / Plan
-
Primary Yarn Rewinder: previously Dr. Navarro with [facility] in [facility]
Assessment:
Presentation with BRBPR
Dizziness, weakness, BRAY
Acute anemia
Concern for chron's flare
Fall, concern for syncope which patient denies
CAD
status post CABG x 1 with SVG to diagonal 2006
RCA PCI x 2 in 2019
Cath 05/2024 with patent stents and grafts
Severe MR status post mitral valve repair 2006
History of ischemic cardiomyopathy with subsequent recovery to 55% by echo 05/2023
Hypertension
Hyperlipidemia
Hypothyroidism
CLL
GERD
Iron deficiency
History of seizures as a child
Ongoing tobacco use
ECHO 05/02/25: pending
Plan:
- Patient presented with symptoms of dizziness, weakness, dyspnea on exertion as well as bright red blood per rectum since this past Wednesday
- Concern for acute Crohn's flare. Management per GI
- Hemoglobin down to 7.4. Patient has records which show hemoglobin is normally 12. Would consider for transfusion, defer to primary service
- Currently receiving IV fluids
- Patient also with recent fall. There was reported concern that this may have been a syncopal episode, which patient denies. Her head CT was without acute abnormalities noted. She does have a ecchymoses of her right orbit
- Check echo
- She is noted to be on both aspirin and Brilinta. Most recent stents were in 2020 by review of records. Would consider stopping Brilinta and continuing aspirin only to reduce bleeding risk
- On Coreg and ramipril in outpatient setting. Will follow blood pressures. Consider orthostatic vital sign check.
- She has yet to establish cardiac care in the area. She would like to follow-up with [facility] upon discharge. Will arrange follow-up
- Discussed with GI
Data Reviewed
-
EKG: Tracing Personally Visualized and interpreted
CT Scan: Report Reviewed by me
Medical Tests (Nuc Med, Echo etc): Report Reviewed by me
Labs: Labs Reviewed by me
Old Records: Reviewed
--- NOTE | 2025-05-02 16:42 | EDCM ---
CM reviewed chart and met with pt bedside in ED. Lives with her son in 3 story condo, no MILLY, has bedroom and full bath on bottom level, full flight of steps to LR/kitchen.
Independent in ADLs, personal care and ambulation at baseline. No assistive devices.
Confirms prescription coverage.
Current VN for Entyvio injections, unsure of agency, no hx SNF
Anticipate discharge home, CM will continue to follow for all discharge planning needs.
[2025-05-02 18:07] LABS: Hematocrit 22.5 % (37.0-47.0); Hemoglobin 7.7 g/dL (12.0-16.0)
[2025-05-02] MEDS: CYANOCOBALAMIN 1000 MCG IM (18:12)
[2025-05-02] MEDS: TYLENOL 650 MG PO (23:35)
[2025-05-03] VITALS (10 sets, daily range): BP systolic 110–179; BP diastolic 68–93; PULSE 98–104
[2025-05-03] MEDS: SOLU-MEDROL PF 20 MG IV ×2 (05:26→15:05)
[2025-05-03] MEDS: SYNTHROID 25 MCG PO (05:27)
[2025-05-03 08:26] LABS: Hematocrit 21.6 % (37.0-47.0); Hemoglobin 7.1 g/dL (12.0-16.0); Mean Corp Hgb Conc. 32.9 g/dL (33.0-37.0); Mean Corpuscular Volume 100.5 fL (81.0-99.0); Platelet Count 189 10^3/uL (130-400); Red Cell Dist. Width 14.8 % (11.5-14.5)
[2025-05-03] MEDS: NSS (PRESERVATIVE FREE) 10 ML IV ×2 (08:28→20:28)
[2025-05-03] MEDS: PROTONIX IV 40 MG IV ×2 (08:28→20:27)
[2025-05-03] MEDS: COREG 6.25 MG PO ×2 (08:28→20:27)
[2025-05-03] MEDS: NSS with KCL 40 MEQ 1000 IV (08:33)
[2025-05-03 08:59] LABS: Blood Urea Nitrogen 6 mg/dl (7-17); Calcium 9.1 mg/dl (8.4-10.2); Carbon Dioxide 24 mmol/L (22-30); Chloride 114 mmol/L (98-107); Estimated Creatinine Clearance 65 ml/min; Glucose 135 mg/dl (70-99); Potassium 5.2 mmol/L (3.5-5.1); Sodium 141 mmol/L (135-145); eGFR > 60.00
--- NOTE | 2025-05-03 09:30 | W.PN.HOSP.TC ---
Today's Communication/Plan
-
see bold
Assessment / Plan
Assessment / Plan
HPI: 69y F with PMH significant for Crohn's disease, ASCVD and CLL who presents to ED complaining of fatigue, diarrhea and BRBPR. Patient reports history of Crohn's disease for the past 15 years. She was maintained on Entyvio until she
relocated to [place] from [place] in October. Patient reports frequent diarrhea - even when on Entyvio. She reports about 3-4 loose bowel movements per day. Her frequency of stools has not changed; however, patient has noted BRB in the stool since
Wednesday. She reports some mild, crampy, diffuse abdominal pain. She has had grossly bloody stools throughout the weekend.
Patient complains of feeling significantly weak / fatigued. She had a fall on Wednesday as well. She cannot recall the details of this fall well and it seems clear that she had syncope.
Assessment/plan:
Crohn's Disease
- ? Crohn's flare - but no change in frequency of stools and CT A/P done in the ED was essentially unremarkable.
- Off of Entyvio since October. No change in frequency of stools. New BRBPR as noted above.
- Appreciate GI input, started on IV steroids as per GI 05/02
Lower GI Bleed
Acute Blood Loss Anemia secondary to the above
- Reviewed prior labs on patient's phone / portal - Hgb in August was 12.1 g/dL.
- Hold Brilinta, continue PPI. Resume aspirin when ok w/ GI
- Will transfuse 1 unit of packed red blood cells today as hemoglobin is 7.1, and she has a history of coronary artery disease
Hypokalemia
- Resolved, stop potassium chloride IV fluids
CLL
- WBC was 10 in August. Currently 17.
- Afebrile and non-toxic appearing. CT scan without evidence of bowel wall thickening / inflammation / etc.
- Monitor
ASCVD
- Appreciate cardiology input, no need for Brilinta, can resume aspirin when ok w/ GI
- Continue carvedilol with holding parameters.
Syncope
Fall at Home
- Patient with fall on Wednesday and evident head injury / apparent syncope. Head CT negative
- Echo shows preserved EF with stable MV repair.
- Orthostatic vital signs negative
-
Hypothyroidism
- Continue T4 supplementation.
DVT Prophylaxis: SCDs
Code Status: Full
Total time spent to see the patient on the floor, examine the patient, review data and lab results, discuss treatment plan with patient, nursing staff around 50 minutes.
Physical Exam
General: No acute distress
HEENT: Normocephalic, left eye periorbital ecchymosis, EOMI, MMM
Respiratory: Clear to Auscultation bilaterally
Cardiac: Normal S1/S2, Regular Rate and Rhythm
GI: Soft, Nontender, Nondistended, Normal Bowel Sounds
Extremities: No Clubbing, Cyanosis, or Edema
Neuro: Nonfocal/Grossly Intact
Anticipated Discharge: 24 - 48 hours
Subjective/Interval History
-
Date of Service: May 03, 2025
Patient denies abdominal pain. She continues to have diarrhea, now liquid brown, no blood. No chest pain, no shortness of breath. No fever, no vomiting.
Objective Data
-
Labs:
Laboratory Results
05/03/25
06:58
WBC 10.0
Hgb 7.1 L
Hct 21.6 L
Plt Count 189
Sodium 141
Potassium 5.2 H D
Chloride 114 H
Carbon Dioxide 24
BUN 6 L
Creatinine 0.6
Glucose 135 H
Calcium 9.1
Vital Signs:
Vital Signs
Temp Pulse Resp BP Pulse Ox
97.8 F 75 16 110/71 99
05/03/25 07:35 05/03/25 08:28 05/03/25 07:35 05/03/25 08:28 05/03/25 07:35
--- NOTE | 2025-05-03 11:31 | W.PN.CARDCBS ---
Today's Communication / Plan
-
Cont GI eval and tx of GI bleed/Crohns disease
Agree with transfuse to support hemoglobin and reduce ischemic demand
She had been on DAPT with ASA and Brilinta but can stay off Brilinta as her PCI was distant.
Echo shows preserved EF with stable MV repair.
Await records
She was on Coreg and ACEI as outpt, hold ACEI for now with hyperkalemia
Monitor orthostatics given fall although patient denies syncope.
Needs to establish with cardiology.
Impression / Plan
-
.
Primary [employer]: previously Dr. Navarro with [facility] in [facility], transitioning to [facility]
Impression:
Presentation with BRBPR/GI bleed
Dizziness, weakness, BRAY likely secondary to above.
Acute anemia
Concern for chron's flare
Fall, concern for syncope which patient denies
CAD
status post CABG x 1 with SVG to diagonal 2006
RCA PCI x 2 in 2019
Cath 05/2024 with patent stents and grafts
Severe MR status post mitral valve repair 2006
History of ischemic cardiomyopathy with subsequent recovery to 55% by echo 05/2023
Hypertension
Hyperlipidemia
Hypothyroidism
CLL
GERD
Iron deficiency
History of seizures as a child
Ongoing tobacco use
ECHO 05/02/25: Preserved LV function with mild to moderate LVH, EF 55-60%. History mitral valve repair with mean gradient 11 mmHg. Mild mitral regurgitation.
Mild tricuspid regurgitation.
Plan:
Cont GI eval and tx of GI bleed/Crohns disease
Agree with transfuse to support hemoglobin and reduce ischemic demand
She had been on DAPT with ASA and Brilinta but can stay off Brilinta as her PCI was distant.
Echo shows preserved EF with stable MV repair.
Await records
She was on Coreg and ACEI as outpt, hold ACEI for now with hyperkalemia
Monitor orthostatics given fall although patient denies syncope.
Needs to establish with cardiology.
Discussed with primary service
Pt remains appreciative.
Progress Note - [employer]
Subjective
Date of Service: May 03, 2025
Pt seen and examined. No complaints. No chest pain or shortness of breath.
Objective
Labs:
05/03/25 06:58
05/03/25 06:58
Labs
Hgb 7.1 g/dL (12.0-16.0) L 05/03/25 06:58
Hct 21.6 % (37.0-47.0) L 05/03/25 06:58
Plt Count 189 10^3/uL (130-400) 05/03/25 06:58
PT 13.7 Sec (11.4-14.6) 05/02/25 00:34
INR 1.02 05/02/25 00:34
APTT 23.3 Sec (23.4-35.0) L 05/02/25 00:34
Sodium 141 mmol/L (135-145) 05/03/25 06:58
Potassium 5.2 mmol/L (3.5-5.1) H D 05/03/25 06:58
BUN 6 mg/dl (7-17) L 05/03/25 06:58
Creatinine 0.6 mg/dL (0.6-1.0) 05/03/25 06:58
Glucose 135 mg/dl (70-99) H 05/03/25 06:58
Vital Signs and I&O:
Vital Signs
Temp Pulse Resp BP Pulse Ox
98.4 F 104 18 158/91 97
05/03/25 10:02 05/03/25 10:02 05/03/25 10:02 05/03/25 10:02 05/03/25 10:02
Vital Signs
Temp Pulse Resp BP Pulse Ox
98.4 F 104 18 158/91 97
05/03/25 10:02 05/03/25 10:02 05/03/25 10:02 05/03/25 10:02 05/03/25 10:02
Physical Exam
Physical Exam
General: No acute distress, AAOX3
Neck: Negative JVD
Heart: Regular, Negative S3 positive S1/S2, Negative S4, No murmur
Lungs: CTA b/l, negative wheezes/rales/rhonchi
Abd: Positive BS, NT/ND, neg rebound/rigidity/guarding
Ext: Negative cyanosis/clubbing/edema
Neuro: nonfocal
--- NOTE | 2025-05-03 12:57 | PN.CDI ---
CDI
- -
CDI:
Physician Documentation Request
Admit Date: 05/02/25 04:38
Dear Doctor Do,
Patient admitted with lower GI bleed suspected Crohn's disease flare. Patient's Brilinta was held
Please clarify if a relationship exist between these conditions:
Yes, GI bleed is related to/associated with/due to/exacerbated by Brilinta
No, GI bleed is not related to/associated with/due to exacerbated by Brilinta
Unable to determine
Use of terms such as suspected, likely, concern for, or probable (associated with a specific diagnosis that is being evaluated, monitored, or treated as if it exists) are acceptable and can be coded in the inpatient setting, when documented at the
time of discharge.
Thank you,
Liz Conde RN, BSN
CDI Specialist
tiger text
Please use your independent medical judgment in providing your response.
--- NOTE | 2025-05-03 15:29 | W.PN.HOSP.TC ---
Today's Communication/Plan
-
Discharge today
Assessment / Plan
Assessment / Plan
HPI: 69y F with PMH significant for Crohn's disease, ASCVD and CLL who presents to ED complaining of fatigue, diarrhea and BRBPR. Patient reports history of Crohn's disease for the past 15 years. She was maintained on Entyvio until she
relocated to [place] from [place] in October. Patient reports frequent diarrhea - even when on Entyvio. She reports about 3-4 loose bowel movements per day. Her frequency of stools has not changed; however, patient has noted BRB in the stool since
Wednesday. She reports some mild, crampy, diffuse abdominal pain. She has had grossly bloody stools throughout the weekend.
Patient complains of feeling significantly weak / fatigued. She had a fall on Wednesday as well. She cannot recall the details of this fall well and it seems clear that she had syncope.
Assessment/plan:
Crohn's Disease
- ? Crohn's flare - but no change in frequency of stools and CT A/P done in the ED was essentially unremarkable.
- Off of Entyvio since October. No change in frequency of stools. New BRBPR as noted above.
- Appreciate GI input, started on IV steroids as per GI 05/02
- Bloody stools resolved, medically stable and cleared by GI for discharge on a slow prednisone taper
- Patient follows with [facility] and has entyvio infusion set up for next week with them
- Follow-up with GI in the office in 2-3 weeks, and her PCP in 1 week
Lower GI Bleed exacerbated by Brilinta
Acute Blood Loss Anemia secondary to the above
- Reviewed prior labs on patient's phone / portal - Hgb in August was 12.1 g/dL.
- Hold Brilinta, continue PPI
- Hemoglobin 9.6 today, improved from 7.1 status post 1 unit packed red blood cells 05/03
Hypokalemia
- Resolved, stop potassium chloride IV fluids
CLL
- WBC was 10 in August. Currently 17.
- Afebrile and non-toxic appearing. CT scan without evidence of bowel wall thickening / inflammation / etc.
- Monitor
ASCVD
- Appreciate cardiology input, no need for Brilinta, will discharge on aspirin 81 mg daily
- Continue carvedilol with holding parameters.
Syncope
Fall at Home
- Patient with fall on Wednesday and evident head injury / apparent syncope. Head CT negative
- Echo shows preserved EF with stable MV repair.
- Orthostatic vital signs negative
- Seen by PT, independent
Hypothyroidism
- Continue T4 supplementation.
Asymptomatic bacteriuria
DVT Prophylaxis: SCDs
Code Status: Full
Physical Exam
General: No acute distress
HEENT: Normocephalic, left eye periorbital ecchymosis, EOMI, MMM
Respiratory: Clear to Auscultation bilaterally
Cardiac: Normal S1/S2, Regular Rate and Rhythm
GI: Soft, Nontender, Nondistended, Normal Bowel Sounds
Extremities: No Clubbing, Cyanosis, or Edema
Neuro: Nonfocal/Grossly Intact
Anticipated Discharge: Today
Subjective/Interval History
-
Date of Service: May 03, 2025
Objective Data
-
Labs:
Laboratory Results
05/03/25
06:58
WBC 10.0
Hgb 7.1 L
Hct 21.6 L
Plt Count 189
Sodium 141
Potassium 5.2 H D
Chloride 114 H
Carbon Dioxide 24
BUN 6 L
Creatinine 0.6
Glucose 135 H
Calcium 9.1
Vital Signs:
Vital Signs
Temp Pulse Resp BP Pulse Ox
97.9 F 90 16 136/68 98
05/03/25 11:30 05/03/25 11:30 05/03/25 11:30 05/03/25 11:30 05/03/25 11:30
--- NOTE | 2025-05-03 16:13 | W.PN.GI.CBS2 ---
Today's Communication / Plan
-
Transition to oral pred
Plan for slow taper as above upon d/c
To resume entyvio infusions outpt through [facility]
Will sign off please call for ?
Assessment / Plan
-
Pt is a 69yo with hx ASCVD, prior ME, prior CABG x1, PTCA with stent x 2(on Brilinta) MVR, TR, pulm HTN, hypercholesterolemia, continued tobacco abuse, GERD on Nexium, hiatal hernia, prior cervical fusion, CLL, HTN, hypothyroidism,
anxiety/depression, autoimmune hepatitis with prior liver biopsy, iron deficiency with prior iron infusions and chronic oral iron, colon polyps, and longstanding crohn's disease x 15 years with IC valve stenosis with prior use of remicade and
Asacol, no prior surgeries with longstanding Entyvio til October with noted IC valve stenosis. Pt was living in [place] and was receiving Entyvio infusions and now moved with [place] with recent follow up with [facility]. She was set up to restart Entyvio
through home infusion this week but now presents with bloody stools since last wednesday.
CT with final report pending preliminary with no acute abnormalities, no obstruction, s/p ezequiel, normal appendix, difficulty to assess for bleeding with enteric contrast, mil gastric distention, hepatic hypodensity too small to Sara is a 69yo W
moved here from [place] with h/o longstanding crohn's of ileal involvement previously on entyvio however due to recent move has been off therapy. She did re-establish at [facility] with home entyvio infusions to start next week. However she is now
presenting for worsening bloody diarrhea. Vitals stable exam R eye bruised NTTP, NABS. Labs Hbg 7.4
Impression
- Acute bloody diarrhea
Suspect crohn's flare in setting of being off entyvio due to move
- H/o crohn's of small bowel
- Anemia
- CAD
- Severe MR
- HTN
- Hyperlipidemia
- Hypothyroidism
- CLL
- GERD
Recommendations
- Stool studies thus far negative
- Transition to oral pred tomorrow. Plan for slow taper 50mg daily x7 days then 40mg x7 days 30mg x7days till 10mg daily and FU with GI at [place]
- Tolerating low residue diet
- Vit B12 injection x1 on 05/02
- She follows with [facility] and has entyvio infusion set up for next week with them
GI will sign off please call for ?
Subjective
Subjective
Date of Service: May 03, 2025
No documented BM since admission. She states diarrhea improved. No abd pain eating 100% of low residue diet
Objective
Data Reviewed
Laboratory Data:
Laboratory Results
05/03/25 06:58
05/03/25 06:58
Laboratory Results
PT 13.7 Sec (11.4-14.6) 05/02/25 00:34
INR 1.02 05/02/25 00:34
APTT 23.3 Sec (23.4-35.0) L 05/02/25 00:34
Magnesium 1.7 mg/dl (1.6-2.3) 05/02/25 00:34
Total Bilirubin 0.4 mg/dl (0.2-1.3) 05/01/25 18:24
AST 19 U/L (14-36) 05/01/25 18:24
ALT 11 U/L (0-35) 05/01/25 18:24
Alkaline Phosphatase 73 U/L (38-126) 05/01/25 18:24
Lipase 273 U/L (23-300) 05/02/25 00:34
Vital Signs and I&O:
Vital Signs
Temp Pulse Resp BP Pulse Ox
97.9 F 90 16 136/68 98
05/03/25 11:30 05/03/25 11:30 05/03/25 11:30 05/03/25 11:05/03/25 11:30
Physical Exam
Physical Exam
GEN: No acute distress, conversant, pleasant
HEENT: anicteric, extraocular movements intact, clear oropharynx without exudates R eye bruised
GI: soft, non-distended, not tender to palpation, normal active bowel sounds, no hepatosplenomegaly
EXT: warm, well perfused, no edema bilaterally
NEURO: AAOx3, non-focal
--- NOTE | 2025-05-03 16:14 | CM ---
Patient seen at bedside
transfusion today
patient states she recently moved here from [place] and now living with her son
she stated she was to have Entyvio infusion yesterday that was set up with [facility] and that supplies were delivered to the home. She states she has notified them that she was in the hospital
JENNY also followed up with Jazmin at [facility] [phone] & left voice message
PT to eval
PLAN: anticipate home, await PT evJENNY martin to follow for needs
[2025-05-04 03:21] VITALS: BP 116/93
[2025-05-04] MEDS: TYLENOL 650 MG PO (03:43)
[2025-05-04] MEDS: SYNTHROID 25 MCG PO (05:21)
[2025-05-04 07:34] VITALS: BP 168/98
[2025-05-04 08:25] LABS: Hematocrit 28.1 % (37.0-47.0); Hemoglobin 9.6 g/dL (12.0-16.0); Mean Corp Hgb Conc. 34.2 g/dL (33.0-37.0); Mean Corpuscular Volume 96.9 fL (81.0-99.0); Platelet Count 192 10^3/uL (130-400); Red Cell Dist. Width 17.0 % (11.5-14.5)
[2025-05-04] MEDS: ALTACE 10 MG PO (08:55)
[2025-05-04] MEDS: CRESTOR 10 MG PO (08:56)
[2025-05-04] MEDS: NSS (PRESERVATIVE FREE) 10 ML IV (08:56)
[2025-05-04] MEDS: PROTONIX IV 40 MG IV (08:56)
[2025-05-04] MEDS: EFFEXOR 75 MG PO (08:56)
[2025-05-04] MEDS: DELTASONE 50 MG PO (08:56)
[2025-05-04] MEDS: COREG 6.25 MG PO (08:56)
[2025-05-04 09:00] LABS: Blood Urea Nitrogen 13 mg/dl (7-17); Calcium 9.3 mg/dl (8.4-10.2); Carbon Dioxide 26 mmol/L (22-30); Chloride 108 mmol/L (98-107); Estimated Creatinine Clearance 65 ml/min; Glucose 91 mg/dl (70-99); Magnesium 1.6 mg/dl (1.6-2.3); Potassium 3.7 mmol/L (3.5-5.1); Sodium 141 mmol/L (135-145); eGFR > 60.00
--- NOTE | 2025-05-04 09:44 | PN.CDI ---
CDI
- -
CDI:
Physician Documentation Request
Admit Date: 05/02/25 04:38
Dear Doctor Do,
Patient presented to ED with complaints of fatigue, diarrhea and blood from rectum.
Urine culture positive for Escherichia coli and lactobacillus species.
UA
Laboratory Tests
05/02/25
01:25
Urine Color Yellow
Urine Clarity Clear
Ur Occult Blood Reflex 3+ A
Urine Nitrite (Reflex) Negative
Leukocyte Esterase Rfl 2+ A
Could you please provide a diagnosis that supports the above lab abnormalities and additional evaluation/ monitoring:
UTI
Asymptomatic bacteruria
Other
Use of terms such as suspected, likely, concern for, or probable (associated with a specific diagnosis that is being evaluated, monitored, or treated as if it exists) are acceptable and can be coded in the inpatient setting, when documented at the
time of discharge.
Thank you,
Liz Conde RN, BSN
CDI Specialist
tiger text
Please use your independent medical judgment in providing your response.
--- NOTE | 2025-05-04 10:49 | W.PN.HOSP.TC ---
Today's Communication/Plan
-
Discharge today
Assessment / Plan
Assessment / Plan
HPI: 69y F with PMH significant for Crohn's disease, ASCVD and CLL who presents to ED complaining of fatigue, diarrhea and BRBPR. Patient reports history of Crohn's disease for the past 15 years. She was maintained on Entyvio until she
relocated to [place] from [place] in October. Patient reports frequent diarrhea - even when on Entyvio. She reports about 3-4 loose bowel movements per day. Her frequency of stools has not changed; however, patient has noted BRB in the stool since
Wednesday. She reports some mild, crampy, diffuse abdominal pain. She has had grossly bloody stools throughout the weekend.
Patient complains of feeling significantly weak / fatigued. She had a fall on Wednesday as well. She cannot recall the details of this fall well and it seems clear that she had syncope.
Assessment/plan:
Crohn's Disease
- ? Crohn's flare - but no change in frequency of stools and CT A/P done in the ED was essentially unremarkable.
- Off of Entyvio since October. No change in frequency of stools. New BRBPR as noted above.
- Appreciate GI input, started on IV steroids as per GI 05/02
- Bloody stools resolved, medically stable and cleared by GI for discharge on a slow prednisone taper
- Patient follows with [facility] and has entyvio infusion set up for next week with them
- Follow-up with GI in the office in 2-3 weeks, and her PCP in 1 week
Lower GI Bleed exacerbated by Brilinta
Acute Blood Loss Anemia secondary to the above
- Reviewed prior labs on patient's phone / portal - Hgb in August was 12.1 g/dL.
- Hold Brilinta, continue PPI
- Hemoglobin 9.6 today, improved from 7.1 status post 1 unit packed red blood cells 05/03
Hypokalemia
- Resolved, stop potassium chloride IV fluids
CLL
- WBC was 10 in August. Currently 17.
- Afebrile and non-toxic appearing. CT scan without evidence of bowel wall thickening / inflammation / etc.
- Monitor
ASCVD
- Appreciate cardiology input, no need for Brilinta, will discharge on aspirin 81 mg daily
- Continue carvedilol with holding parameters.
Syncope
Fall at Home
- Patient with fall on Wednesday and evident head injury / apparent syncope. Head CT negative
- Echo shows preserved EF with stable MV repair.
- Orthostatic vital signs negative
- Seen by PT, independent
Hypothyroidism
- Continue T4 supplementation.
Asymptomatic bacteriuria
DVT Prophylaxis: SCDs
Code Status: Full
Physical Exam
General: No acute distress
HEENT: Normocephalic, left eye periorbital ecchymosis, EOMI, MMM
Respiratory: Clear to Auscultation bilaterally
Cardiac: Normal S1/S2, Regular Rate and Rhythm
GI: Soft, Nontender, Nondistended, Normal Bowel Sounds
Extremities: No Clubbing, Cyanosis, or Edema
Neuro: Nonfocal/Grossly Intact
Anticipated Discharge: Today
Subjective/Interval History
-
Date of Service: May 05, 2025
Patient reports feeling better. Denies abdominal pain. No nausea, no vomiting. She is having brown diarrhea, no blood. No fever.
Objective Data
-
Vital Signs:
Vital Signs
Temp Pulse Resp BP Pulse Ox
98.0 F 100 16 146/84 97
05/04/25 11:24 05/04/25 11:24 05/04/25 11:24 05/04/25 11:24 05/04/25 11:32
I&O
05/04/25 05/05/25 05/06/25
06:59 06:59 06:59
Intake Total 720 / 720
Balance 720 / 720
--- NOTE | 2025-05-04 10:57 | W.PN.CARDCBS ---
Addendum entered and electronically signed by Jose Yoder MD 05/04/25 16:12:
I saw and examined the patient.
The Instructional Services Specialist's note was reviewed and I agree with the note.
Comment:
GEN: No distress, awake, Ox3
HEENT: supple, anicteric, mmm
LUNGS: CTA, no wheezes/rales
CV: Reg, S1/S2, 1/6 syst LSB, no gallop
ABD: soft, BS+, NT/ND
EXT: No edema
NEURO: Gross non-focal
SKIN: No rash
Plan:
Overall remains stable from a cardiac standpoint. No further GI bleeding. Would discharge on aspirin and remain off Brilinta.
Okay for discharge from cardiology standpoint.
Continue Coreg and ramipril. Continue Crestor.
Will arrange follow-up
Original Note:
Today's Communication / Plan
-
Discharge home on aspirin but keep off Brilinta
Resume ramipril 10 mg, continue Coreg
Will arrange for outpatient cardiology follow-up with [facility] cardiology
Records from prior patient access registrar in [place] has been requested
Impression / Plan
-
.
Primary Instrument Engineer: previously Dr. Navarro with [facility] in [facility], transitioning to [facility], initial consultation Dr. Vincent
Impression:
Presentation 05/01/2025 with BRBPR/GI bleed
Dizziness, weakness, BRAY likely secondary to above.
Acute anemia
Concern for chron's flare
Fall, concern for syncope which patient denies
CAD
status post CABG x 1 with SVG to diagonal 2006
RCA PCI x 2 in 2019
Cath 05/2024 with patent stents and grafts
Severe MR status post mitral valve repair 2006
History of ischemic cardiomyopathy with subsequent recovery to 55% by echo 05/2023
Hypertension
Hyperlipidemia
Hypothyroidism
CLL
GERD
Iron deficiency
History of seizures as a child
Ongoing tobacco use
ECHO 05/02/25: Preserved LV function with mild to moderate LVH, EF 55-60%. History mitral valve repair with mean gradient 11 mmHg. Mild mitral regurgitation.
Mild tricuspid regurgitation.
Plan:
Presentation 05/01/2025 with BRBPR/GI bleed.
Cont GI eval (stool studies thus far negative)
Ongoing tx of GI bleed/Crohns disease with plan for slow prednisone taper over course of 4 to 6 weeks
Transfused 1 unit RBCs 05/03/2025, hemoglobin now improved to 9.6
She had been on DAPT with ASA and Brilinta. Keep off Brilinta as her PCI was distant but continue ASA
Echo shows preserved EF with stable MV repair.
She was on Coreg and ACEI as outpt.
Patient initially hypokalemic with repletion. Then slightly hyperkalemic. Potassium currently 3.7. Would resume ramipril. Will need BMP in 5 to 7 days after discharge
Fall DATA REPORTING ANALYST although patient denies syncope. Blood pressure now improved and hypertensive 05/04/2025 after transfusion. Resume ramipril, continue Coreg
Will arrange for patient to follow with [facility] cardiology as she previously lived in [place] but is now living in [place]. Records from prior patient access registrar has been requested
Discussed with primary service
History of Present Illness:
Patient is a 69-year-old female who moved to live with family in the area from [place]. She has past medical history of Crohn's disease, CAD status post CABG x 1 with SVG to diagonal and mitral valve repair in 2006, RCA PCI x 2 in 2019 with most
recent cath 05/2024 with patent stents and grafts, history of ischemic cardiomyopathy with subsequent recovery to 55% by most recent echo reviewed by me 05/2023, hypertension, hyperlipidemia, hypothyroidism, CLL, GERD, iron deficiency who reports
she started on this past Wednesday with bright red blood per rectum. She then noted over the weekend that she was having weakness, dizziness, and shortness of breath with exertion. She had a fall but reports this was due to her not wearing glasses
and her missing a step and falling hitting her head. She has a ecchymoses of her right orbit. Cardiology consulted given her cardiac history and as there was some degree of concern for syncopal event rather than fall.
Progress Note - Instrument Engineer
Subjective
Date of Service: May 04, 2025
Patient seen and examined. Reports feeling better and denies CP, SOB, palpitations
Objective
Labs:
05/04/25 07:35
05/04/25 07:35
Labs
Hgb 9.6 g/dL (12.0-16.0) L D 05/04/25 07:35
Hct 28.1 % (37.0-47.0) L 05/04/25 07:35
Plt Count 192 10^3/uL (130-400) 05/04/25 07:35
PT 13.7 Sec (11.4-14.6) 05/02/25 00:34
INR 1.02 05/02/25 00:34
APTT 23.3 Sec (23.4-35.0) L 05/02/25 00:34
Sodium 141 mmol/L (135-145) 05/04/25 07:35
Potassium 3.7 mmol/L (3.5-5.1) D 05/04/25 07:35
BUN 13 mg/dl (7-17) 05/04/25 07:35
Creatinine 0.6 mg/dL (0.6-1.0) 05/04/25 07:35
Glucose 91 mg/dl (70-99) 05/04/25 07:35
Vital Signs and I&O:
Vital Signs
Temp Pulse Resp BP Pulse Ox
97.5 F 98 18 168/98 97
05/04/25 07:34 05/04/25 08:55 05/04/25 07:34 05/04/25 08:55 05/04/25 07:34
Vital Signs
Temp Pulse Resp BP Pulse Ox
97.5 F 98 18 168/98 97
05/04/25 07:34 05/04/25 08:55 05/04/25 07:34 05/04/25 08:55 05/04/25 07:34
Intake & Output
05/02/25 05/03/25 05/04/25 05/05/25
06:59 06:59 06:59 06:59
Intake Total 720 / 720
Balance 720 / 720
Physical Exam
Physical Exam
GEN: No distress, awake, Ox3
HEENT: supple, anicteric, mmm, ecchymosis around right eye
LUNGS: CTA, no wheezes/rales
CV: Reg, S1/S2, no murmur, rub, gallop
ABD: soft, BS+, NT/ND
EXT: No edema, clubbing, cyanosis
NEURO: Gross non-focal
SKIN: No rash
[2025-05-04 11:24] VITALS: BP 146/84
--- NOTE | 2025-05-04 11:50 | W.DCSUMMARY ---
Discharge Summary
Discharge Data
Date of Admission: 05/02/25
Date of Discharge: 05/04/25
-
Pending Results: No
Hospital Course
Discharge diagnosis:
Bloody diarrhea
Probable Crohn's disease exacerbation
Lower gastrointestinal bleed exacerbated by Brilinta
Acute blood loss anemia
Hypokalemia
Chronic lymphocytic leukemia
Coronary artery disease
Fall at home with suspected syncope
Hypothyroidism
Asymptomatic bacteriuria
Consults: GI, cardiology
CT abd/pelvis:
No evidence for bowel obstruction or free intraperitoneal air. The appendix appears normal.
No evidence for focal bowel wall thickening or narrowing in this patient with a history of Crohn's disease.
Status post cholecystectomy with no evidence for biliary ductal dilation.
2 low-density hepatic lesions, which very likely represent hemangiomas.
Bony degenerative changes as described above.
Hospital course:
69-year-old female with a past medical history of CLL, Crohn's disease, CAD, and hypothyroidism was admitted for bloody diarrhea and fall concerning for syncope. Patient was seen in conjunction with GI. She was treated with IV Protonix and IV
steroids for probable Crohn's disease exacerbation. Her bloody diarrhea resolved.
She had acute blood loss anemia, her hemoglobin dropped to 7.1. She did receive 1 unit of packed red blood cells, and her hemoglobin improved to 9.6.
Patient was seen in conjunction with cardiology for suspected syncope. There were no arrhythmias on telemetry. Orthostatic vital signs are negative. Patient has a history of coronary artery disease with stent placement. Cardiology states so she
no longer needs to be on Brilinta. She can be discharged on aspirin 81 mg daily.
Patient responded very well to the IV steroids. GI transitioned her to prednisone 50 mg daily. GI recommends discharge on a slow taper, until she is seen by her usual GI doctor in the office to resume her entyvio infusions.
Disposition: Home self-care
Discharge planning: Required 39 minutes
Discharge Plan
-
Patient Disposition: Home (Routine Discharge)
Discharge Diagnosis/Procedures: Acute bloody diarrhea concerning for Crohn's exacerbation, acute blood loss anemia, fall with suspected syncope
Condition: Good
Diet: Low Fat and Low Cholesterol
Activity: As tolerated
Driving Restrictions: As prior to admission
Activity Restrictions/Additional Instructions:
Take prednisone 50mg daily x7days, 40mg daily x7days, 30mg daily x7days, then 20mg daily until seen by GI.
Cardiology says you no longer need to be on Brilinta. You can take aspirin 81 mg daily instead.
Please follow-up with your usual GI doctor or a GI doctor in 2-3 weeks, cardiology in 3-4 weeks, and your PCP in 1 week.
Referrals:
Anjelica Lara MD [Family Provider, Internal Medicine] - in one week
Mily Nunez MD [Active, Gastroenterology] - in two to three weeks
Quentin Vincent DO [Active, Cardiology] - in three to four weeks
Prescriptions:
New
prednisone 10 mg tablet
10 mg PO .TAPER Qty: 120 0RF
Rx Instructions:
50mg daily x7days, 40mg daily x7days,
30mg daily x7days, 20mg daily until seen by GI
aspirin 81 mg tablet
81 mg PO DAILY Qty: 30 0RF
Continued
carvedilol [Coreg] 6.25 mg Tablet
6.25 mg PO BID
venlafaxine 75 mg Tablet
75 mg PO DAILY
levothyroxine [Synthroid] 25 mcg Tablet
25 mcg PO DAILY
ferrous sulfate 325 mg (65 mg iron) Tablet
325 mg PO DAILY
esomeprazole magnesium [Nexium] 40 mg Capsule,Delayed Release(Dr/Ec)
40 mg PO DAILY
ipratropium bromide 42 mcg (0.06 %) [place],Non-Aerosol
2 spray INTRANASAL BIDPRN PRN (Reason: outside activity)
ramipril 10 mg Capsule
10 mg PO DAILY
rosuvastatin [Crestor] 10 mg Tablet
10 mg PO DAILY
diphenhydramine-acetaminophen [Acetaminophen PM] 25-500 mg Tablet
2 tab PO HS
Discontinued
ticagrelor [Brilinta] 90 mg Tablet
90 mg PO BID
Discharge Orders:
Discharge Patient (As Directed); Ordered 05/04/25
Ordered By: Zelalem Nunez
Discharge Date and Time
Discharge Date/Time: 05/04/25 14:03
Print Language: BHUTANESE
--- NOTE | 2025-05-04 12:10 | CM ---
Patient seen at bedside
spoke with Jazmin [phone] infusion nurse who was set up for Entyvio infusion & notified of plan for dc today
Jazmin requested [facility] call Trista LOZANO ([phone])at [place] to update her regarding patient's hospitalization
tt Hyacinth Andersen who stated she will call her.
IMM explained & signed.
PLAN: Home, no needs
patient states will uber home
[2025-05-07 02:34] LABS: Calprotectin, Fecal 166 ug/g (<=49)
== END 2025-05-04 14:03 | disposition home or self-care (01) | DRG 386 ==
LOC: 4 WEST ACU 04:38
PROVIDERS: Emergency Medicine; Nurse Practitioner Adult Health; Physician Assistant; ADMITTING PHYSICIAN Hospitalist; ATTENDING PHYSICIAN Family Medicine; CONSULT PHYSICIAN Internal Medicine Gastroenterology; CONSULT PHYSICIAN Nuclear Medicine Nuclear Cardiology; EMERGENCY PHYSICIAN Emergency Medicine; FAMILY PHYSICIAN Internal Medicine
PROC: 30233N1 Transfusion of Nonautologous Red Blood Cells into Peripheral Vein, Percutaneous Approach (ICD-10-PCS; 2025-05-03)
DX: K50.011 Crohn's disease of small intestine with rectal bleeding (principal); C91.10 Chronic lymphocytic leukemia of B-cell type not having achieved remission; D62 Acute posthemorrhagic anemia; D68.32 Hemorrhagic disorder due to extrinsic circulating anticoagulants; I10 Essential (primary) hypertension; I25.10 Atherosclerotic heart disease of native coronary artery without angina pectoris; E78.00 Pure hypercholesterolemia, unspecified; D50.9 Iron deficiency anemia, unspecified; K21.9 Gastro-esophageal reflux disease without esophagitis; E87.6 Hypokalemia; F32.A Depression, unspecified; F41.9 Anxiety disorder, unspecified; F17.210 Nicotine dependence, cigarettes, uncomplicated; E03.9 Hypothyroidism, unspecified; I25.5 Ischemic cardiomyopathy; R82.71 Bacteriuria; D18.03 Hemangioma of intra-abdominal structures; K22.70 Barrett's esophagus without dysplasia; I27.20 Pulmonary hypertension, unspecified; S00.83XA Contusion of other part of head, initial encounter; S00.11XA Contusion of right eyelid and periocular area, initial encounter; W19.XXXA Unspecified fall, initial encounter; Y93.9 Activity, unspecified; Y92.009 Unspecified place in unspecified non-institutional (private) residence as the place of occurrence of the external cause; Z95.1 Presence of aortocoronary bypass graft; Z95.5 Presence of coronary angioplasty implant and graft; Z98.1 Arthrodesis status; Z88.8 Allergy status to other drugs, medicaments and biological substances; Z79.890 Hormone replacement therapy; Z79.899 Other long term (current) drug therapy; Z79.02 Long term (current) use of antithrombotics/antiplatelets; K75.4 Autoimmune hepatitis; I25.2 Old myocardial infarction; Z90.49 Acquired absence of other specified parts of digestive tract; Z86.0100 Personal history of colon polyps, unspecified; Z87.19 Personal history of other diseases of the digestive system
CPT/HCPCS: 70450; 74177; 80048; 80053; 81003; 81015; 82607; 82728; 82746; 83540; 83550; 83605; 83690; 83735; 83993; 84100; 84439; 84443; 85014; 85018; 85025; 85027; 85610; 85652; 85730; 86140; 86850; 86900; 86901; 86920; 87045; 87046; 87086; 87088; 87186; 87324; 87328; 87329; 87427; 87449; 89055; 93306; 96361; 96365; 97162; 99285; 99406; P9058; Q9967